=== PATIENT | female | born 1990 | race Caucasian/White ===

== ENCOUNTER → 2019-07-10 | Emergency (ER) | payer SELFPAY ==
[~2019-07-10] VITALS: Ht 154.9 cm; Wt 54.4 kg
[~2019-07-10] MED LIST: CEFTRIAXONE SOD 1 GM/NS 50 ML 50 ML IV ONE; HYDROCODONE/APAP 7.5MG-325MG 1 EA TAB ONE
--- OUTSIDE RECORDS SUMMARY | 2019-07-10 20:18 | XMS REPORT | Continuity of Care Document ---
Author Author [facility] Address [address] [place] [address] ;ext= Care Team Providers Care Store Standards Associate Name Role Phone DR SHO MIRANDA Admphys DR SHO MIRANDA Attphys Hospital Admission Diagnosis Code Admission Diagnosis Date UNSPECIFIED LUMP IN THE RIGHT BREAST, UNSPECIFIED QUADRANT Social History Element Description Code Description Smoking Status Code System Start Date End Date Smoking Status [id number] Light tobacco smoker SNOMED-CT Problems Code Code System Problem Name Start Date End Date Status [id number] SNOMED-CT Acute dermatitis 05/03/2016 Active 738229321 SNOMED-CT Acute pharyngitis 05/03/2016 Active Medications RxNorm Medication Dose Route Instructions Indications Start Date End Date Status 064535 Amoxicillin 875 MG Oral Tablet 875 milligram Oral orally every 12 hours Active 772093 Ibuprofen 600 MG Oral Tablet 600 milligram Oral orally every 8 hours as needed. (as needed for pain; do not exceed 4 doses in a 24 hour period) Active 576035 tramadol hydrochloride 50 MG Oral Tablet 50 milligram Oral orally every 8 hours as needed. (as needed for pain) Active Allergies Code Code System Allergy Substance Type Reaction Severity Start Date End Date Status RXNorm NKA Drug allergy Unknown Active Results Radiology Results Order: [id number] US BREAST UNILATERAL LIMITED* Exam Completion Date:09/20/2017 13:37 Procedure: US BREAST UNILATERAL LIMITED, US BREAST UNILATERAL LIMITED Ex am Date: 09/20/2017 Ordering Provider: DR SHO MIRANDAClinical Indication: breast lumpFindings: Ultrasound examination of the right breast was performed wi th attention to theouter oral breast and axillary region. There is a typical olivier earing rightaxillary lymph node which is not palpable measuring 0.[address] shortaxis diameter. There is heterogeneous fibroglandular tissue present. A s implecyst measuring 7 mm is incidentally noted at the 9:00 position approximatel y 3cm from the nipple and is also not palpable. There is no solid mass orarchite ctural distortion. No discrete sonographic abnormality is identified inthe palpa ble area.Targeted ultrasound examination of the outer left breast was performed. There isheterogeneous fibroglandular tissue. No cyst or solid mass is identifie d. Thereis no architectural distortion.Impression: No sonographic abnormality i n either breast is noted to correspondto a palpable finding. Insulin is made of a subcentimeter simple cyst in theouter right breast and atypical appearing norm al sized right axillary lymphnode. Careful clinical assessment is suggested.BI-R ADS 2: Benign Findings.This final report was electronically signed by Dr Desi Pablo MD 09/21/20178:25 AMDictated By: DESI PABLODate: 09/21/2017 08:32 Order: [id number] US BREAST UNILATERAL LIMITED* Exam Completion Date:09/20/2017 13:00 Procedure: US BREAST UNILATERAL LIMITED, US BREAST UNILATERAL LIMITED Ex am Date: 09/20/2017 Ordering Provider: DR SHO Vigilinical Indication: breast lumpFindings: Ultrasound examination of the right breast was performed wi th attention to theouter oral breast and axillary region. There is a typical olivier earing rightaxillary lymph node which is not palpable measuring 0.[address] shortaxis diameter. There is heterogeneous fibroglandular tissue present. A s implecyst measuring 7 mm is incidentally noted at the 9:00 position approximatel y 3cm from the nipple and is also not palpable. There is no solid mass orarchite ctural distortion. No discrete sonographic abnormality is identified inthe palpa ble area.Targeted ultrasound examination of the outer left breast was performed. There isheterogeneous fibroglandular tissue. No cyst or solid mass is identifie d. Thereis no architectural distortion.Impression: No sonographic abnormality i n either breast is noted to correspondto a palpable finding. Insulin is made of a subcentimeter simple cyst in theouter right breast and atypical appearing norm al sized right axillary lymphnode. Careful clinical assessment is suggested.BI-R ADS 2: Benign Findings.This final report was electronically signed by Dr Desi Pablo MD 09/21/20178:25 AMDictated By: DESI PABLODate: 09/21/2017 08:32 Vital Signs * No data in the system Plan of Care * No data in the system Procedures Code Code System Procedure Name Target Site Date of Procedure US BREAST UNILATERAL LIMITED 09/21/2017 08:32 Encounters Date Code Diagnosis Status (ICD10) - N6310 UNS LUMP IN RT BREAST UNS QUADRANT Active Immunizations Vaccine Code Code System Vaccine Name Date Status 88 CVX influenza virus vaccine, NOS Not given (patient objection) Functional Status * No data in the system Hospital Discharge Instructions * No data in the system
--- OUTSIDE RECORDS SUMMARY | 2019-07-10 20:18 | XMS REPORT ---
Author Author [facility] Address Unknown Phone Unavailable Care Team Providers Care Technical Sales Support Specialist Name Role Phone DR SHO MIRANDA Unavailable Unavailable Problems This patient has no known problems. Allergies, Adverse Reactions, Alerts This patient has no known allergies or adverse reactions. Medications This patient has no known medications. Results Test Description Test Time Test Comments Text Results Atomic Results Result Comments US BREAST UNILATERAL LIMITED 2017-09-21 08:32:13 Procedure: US BREAST UNILATERAL LIMITED, US BREAST UNILATERAL LIMITEDExam Date: 09/20/2017Ordering Provider: DR SHO Vigilinical Indication: breast lumpFindings:Ultrasound examination of the right breast was performed with attention to theouter oral breast and axillary region. There is a typical appearing rightaxillary lymph node which is not palpable measuring 0.7 cm in greatest shortaxis diameter. There is heterogeneous fibroglandular tissue present. A simplecyst measuring 7 mm is incidentally noted at the 9:00 position approximately 3cm from the nipple and is also not palpable. There is no solid mass orarchitectural distortion. No discrete sonographic abnormality is identified inthe palpable area.Targeted ultrasound examination of the outer left breast was performed. There isheterogen eous fibroglandular tissue. No cyst or solid mass is identified. Thereis no architectural distortion.Impression: No sonographic abnormality in either breast is noted to correspondto a palpable finding. Insulin is made of a subcentimeter simple cyst in theouter right breast and atypical appearing normal sized right axillary lymphnode. Careful clinical assessment is suggested.BI-RADS 2: Benign Findings.This final report was electronically signed by Dr Desi Pierre MD 09/21/20178:25 AMDictated By: DESI PIERREDate: 09/21/2017 08:32 US BREAST UNILATERAL LIMITED 2017-09-21 08:32:09 Procedure: US BREAST UNILATERAL LIMITED, US BREAST UNILATERAL LIMITEDExam Date: 09/20/2017Ordering Provider: DR SHO NELLSCHClinical Indication: breast lumpFindings:Ultrasound examination of the right breast was performed with attention to theouter oral breast and axillary region. There is a typical appearing rightaxillary lymph node which is not palpable measuring 0.7 cm in greatest shortaxis diameter. There is heterogeneous fibroglandular tissue present. A simplecyst measuring 7 mm is incidentally noted at the 9:00 position approximately 3cm from the nipple and is also not palpable. There is no solid mass orarchitectural distortion. No discrete sonographic abnormality is identified inthe palpable area.Targeted ultrasound examination of the outer left breast was performed. There isheterogen eous fibroglandular tissue. No cyst or solid mass is identified. Thereis no architectural distortion.Impression: No sonographic abnormality in either breast is noted to correspondto a palpable finding. Insulin is made of a subcentimeter simple cyst in theouter right breast and atypical appearing normal sized right axillary lymphnode. Careful clinical assessment is suggested.BI-RADS 2: Benign Findings.This final report was electronically signed by Dr Desi Pierre MD 09/21/20178:25 AMDictated By: DESI PIERREDate: 09/21/2017 08:32
[2019-07-10 21:24] LABS: BILIRUBIN,URINE NEGATIVE (NEGATIVE); CLARITY,URINE SL CLOUDY (CLEAR); COLOR,URINE YELLOW (YELLOW); KETONES,URINE TRACE (NEGATIVE); LEUKOCYTE ESTERASE ,URINE SMALL (NEGATIVE); NITRITE,URINE NEGATIVE (NEGATIVE); PROTEIN,URINE DIPSTICK NEGATIVE (NEGATIVE); URINE UROBILINOGEN 0.2 mg/dL (0.2 - 1)
[2019-07-10 21:37] LABS: AMORPHOUS SEDIMENT,URINE MODERATE (FEW); BACTERIA,URINE MODERATE /HPF; EPITHELIAL CELLS,URINE MANY /LPF; TRANSITIONAL EPI CELLS,URINE MODERATE
--- NOTE | 2019-07-10 23:00 | Diagnostic Imaging Report ---
EXAM: Transabdominal and Transvaginal Pelvic Ultrasound INDICATION: Abdominal pain . Vaginal bleeding. COMPARISON: None TECHNIQUE: Grayscale transverse and sagittal transabdominal and transvaginal images were obtained of the pelvis. Transvaginal imaging was medically necessary to better evaluate the endometrium and the adnexa. CLINICAL HISTORY: 28 year old A0; last menstrual period: 06/20/2019.. FINDINGS: Uterus Orientation: Normal Size: 7.6 x 3.0 x 4.9 cm, Normal Mass: None Cervix: Normal Endometrium: Thickness: 0.5 cm, Normal. Appearance: Homogeneous echotexture without focal thickening. Right ovary: Size: 2.1 x 1.5 x 1.6 cm Mass/Cyst: None Left ovary: Size: 3.3 x 1.9 x 2.4 cm Mass/Cyst: None Adnexa: Normal Cul-de-sac: No free fluid IMPRESSION: Unremarkable pelvic ultrasound exam. No evidence of intrauterine or ectopic , therefore, of unknown location: Positive urine or serum test and no IUP or ectopic on US. Recommend correlation with serial beta hCG levels, and if warranted, follow-up ultrasound of pelvis in 1 to 2 weeks. classification: Viable: can potentially result in a liveborn baby Visualized embryo with FHT Nonviable: Findings diagnostic of failure Ectopic CRL >= 7 mm and no FHT MSD >= 25 mm and no embryo No FHT >= 2 weeks after US showed GS w/o YS No FHT >= 11 days after US showed GS w/ YS Intrauterine of uncertain viability: Intrauterine GS with no FHT and no definite findings of failure of unknown location: Positive urine or serum test and no IUP or ectopic on US ?@ Diagnostic Criteria for Nonviable Early in the First Trimester N Engl J Med 2013;369:1443-51. DOI: [id number] Signed by: Dr. Pedro Meadows M.D. on 07/10/2019 10:57 PM
== END | disposition home or self-care (01) ==
LOC: ER 20:16
DX: O20.9 Hemorrhage in early pregnancy, unspecified (principal); O23.10 Infections of bladder in pregnancy, unspecified trimester; R10.2 Pelvic and perineal pain
CPT/HCPCS: 36415; 76830; 81001; 84702; 99283